=== PATIENT | female | born 1985 | race Caucasian/White ===

== ENCOUNTER 2016-04-21 19:21 | Emergency (ER) | payer OTHER ==
[2016-04-21 19:24] VITALS: BP 122/58; PULSE 68; RESP 16; TEMP 98.4; O2SAT 100
== END 2016-04-21 19:35 | disposition left against medical advice (07) ==
LOC: NED 19:21
DX: Z53.21 Procedure and treatment not carried out due to patient leaving prior to being seen by health care provider (principal)
CPT/HCPCS: 99281